=== PATIENT | male | born 1960 | race Caucasian/White ===

== ENCOUNTER 2015-12-30 08:13 | Outpatient (RCR) | payer MEDICAID, OTHER ==
[~2015-12-30 08:13] MED LIST: HYDR-3702 PO; IBP200T PO; PRD20T; PRED20TA PO
[2015-12-30 08:55] LABS: MEAN CORPUSCULAR HEMOGLOBIN 30.5 PG (26.0-34.0); MEAN CORPUSCULAR HGB CONC 35.3 g/dL (31.0-37.0); MEAN CORPUSCULAR VOLUME 86 FL (80-100); MEAN PLATELET VOLUME 8.9 FL (6.0-9.5); PLATELET COUNT 240 10^3uL (150-450); WHITE BLOOD COUNT 8.04 10^3uL (4.0-11.0)
[2015-12-30 09:15] LABS: ALBUMIN 3.2 g/dL (3.4-5.0); ANION GAP 11.9 MEQ/L (3-15); CALCULATED IONIZED CALCIUM 4.2 mg/dL (3.8-4.6); MAGNESIUM* 2.1 mg/dL (1.6-2.3); PHOSPHORUS 3.5 mg/dL (2.4-4.9); TOTAL PROTEIN 6.5 g/dL (6.4-8.5)
[2015-12-30 09:55] LABS: BAND NEUTROPHILS % 0 % (0-6); EOSINOPHILS % 3 % (0-4); LYMPHOCYTES # 1.5 #; MONOCYTES # 0.7 #; MONOCYTES % 9 % (3-11); RBC MORPH NORMAL (NORMAL); SEGMENTED NEUTROPHILS % 69 % (51-67); TOTAL CELLS COUNTED 100
[2016-01-13] MEDS ORDERED: HYDR-3811 PO (09:06)
[2016-01-20 09:24] LABS: MEAN CORPUSCULAR HEMOGLOBIN 30.1 PG (26.0-34.0); MEAN CORPUSCULAR VOLUME 84 FL (80-100); MEAN PLATELET VOLUME 9.5 FL (6.0-9.5); PLATELET COUNT 131 10^3uL (150-450); WHITE BLOOD COUNT 18.35 10^3uL (4.0-11.0)
[2016-01-20 09:30] LABS: MEAN CORPUSCULAR HGB CONC 35.6 g/dL (31.0-37.0)
[2016-01-20 09:44] LABS: ALBUMIN 2.9 g/dL (3.4-5.0); ANION GAP 12.3 MEQ/L (3-15); MAGNESIUM* 1.9 mg/dL (1.6-2.3); TOTAL PROTEIN 6.4 g/dL (6.4-8.5)
[2016-01-20 09:48] LABS: SEGMENTED NEUTROPHILS % 95 % (51-67)
[2016-01-20 09:49] LABS: BAND NEUTROPHILS % 3 % (0-6); EOSINOPHILS % 0 % (0-4); LYMPHOCYTES # 0.4 #; MONOCYTES % 0 % (3-11); RBC MORPH NORMAL (NORMAL); TOTAL CELLS COUNTED 100
[2016-01-22] MEDS ORDERED: OXYC1TAB87 PO (15:32)
[2016-01-27] MEDS ORDERED: MAGN400O7 PO (09:55)
[2016-01-27] MEDS ORDERED: POLY17PO2 PO (09:55)
[2016-01-27] MEDS ORDERED: DOCU100C8 PO (09:55)
[2016-01-27] MEDS ORDERED: VANC1.252 IV (09:55)
[2016-01-29] MEDS ORDERED: VANC1PLA9 IV (08:45)
[2016-01-29] MEDS ORDERED: ACET-93 PO (08:45)
[2016-02-04 08:56] LABS: MEAN CORPUSCULAR HEMOGLOBIN 29.9 PG (26.0-34.0); MEAN CORPUSCULAR HGB CONC 34.6 g/dL (31.0-37.0); MEAN CORPUSCULAR VOLUME 86 FL (80-100); MEAN PLATELET VOLUME 8.1 FL (6.0-9.5); PLATELET COUNT 428 10^3uL (150-450); WHITE BLOOD COUNT 9.57 10^3uL (4.0-11.0)
[2016-02-04 09:20] LABS: BAND NEUTROPHILS % 0 % (0-6); EOSINOPHILS % 0 % (0-4); LYMPHOCYTES # 0.5 #; MONOCYTES # 1.5 #; MONOCYTES % 17 % (3-11); SEGMENTED NEUTROPHILS % 78 % (51-67); TOTAL CELLS COUNTED 100
[2016-02-04 09:21] LABS: RBC MORPH NORMAL (NORMAL)
[2016-02-19 08:10] LABS: MEAN CORPUSCULAR HEMOGLOBIN 29.2 PG (26.0-34.0); MEAN CORPUSCULAR HGB CONC 33.8 g/dL (31.0-37.0); MEAN CORPUSCULAR VOLUME 86 FL (80-100); MEAN PLATELET VOLUME 8.1 FL (6.0-9.5); PLATELET COUNT 135 10^3uL (150-450); WHITE BLOOD COUNT 9.26 10^3uL (4.0-11.0)
[2016-02-19 08:37] LABS: BAND NEUTROPHILS % 0 % (0-6); EOSINOPHILS % 0 % (0-4); LYMPHOCYTES # 1.2 #; MONOCYTES % 0 % (3-11); RBC MORPH NORMAL (NORMAL); SEGMENTED NEUTROPHILS % 87 % (51-67); TOTAL CELLS COUNTED 100
[2016-02-19 18:04] LABS: IRON 16 ug/dL (65-175); UNBOUND IRON CONTENT 167 ug/dl (126-382)
[2016-02-27 07:44] LABS: MEAN CORPUSCULAR HEMOGLOBIN 28.6 PG (26.0-34.0); MEAN CORPUSCULAR HGB CONC 33.3 g/dL (31.0-37.0); MEAN CORPUSCULAR VOLUME 86 FL (80-100); MEAN PLATELET VOLUME 8.1 FL (6.0-9.5); PLATELET COUNT 287 10^3uL (150-450); WHITE BLOOD COUNT 4.77 10^3uL (4.0-11.0)
[2016-02-27 08:18] LABS: BAND NEUTROPHILS % 0 % (0-6); EOSINOPHILS % 0 % (0-4); LYMPHOCYTES # 0.2 #; MONOCYTES % 1 % (3-11); RBC MORPH NORMAL (NORMAL); SEGMENTED NEUTROPHILS % 94 % (51-67); TOTAL CELLS COUNTED 100
[2016-03-04 09:24] LABS: MEAN CORPUSCULAR HEMOGLOBIN 28.7 PG (26.0-34.0); MEAN CORPUSCULAR HGB CONC 33.5 g/dL (31.0-37.0); MEAN CORPUSCULAR VOLUME 86 FL (80-100); PLATELET COUNT 96 10^3uL (150-450); WHITE BLOOD COUNT 4.02 10^3uL (4.0-11.0)
[2016-03-04 09:55] LABS: BAND NEUTROPHILS % 12 % (0-6); SEGMENTED NEUTROPHILS % 70 % (51-67)
[2016-03-04 09:56] LABS: EOSINOPHILS % 0 % (0-4); LYMPHOCYTES # 0.6 #; MONOCYTES # 0.1 #; MONOCYTES % 3 % (3-11); RBC MORPH NORMAL (NORMAL); TOTAL CELLS COUNTED 100
[2016-03-04 17:37] LABS: IRON 177 ug/dL (65-175); UNBOUND IRON CONTENT <47 ug/dl (126-382)
[2016-03-11 08:08] LABS: MEAN CORPUSCULAR HEMOGLOBIN 28.8 PG (26.0-34.0); MEAN CORPUSCULAR HGB CONC 33.9 g/dL (31.0-37.0); MEAN CORPUSCULAR VOLUME 85 FL (80-100); MEAN PLATELET VOLUME 9.4 FL (6.0-9.5); PLATELET COUNT 94 10^3uL (150-450); WHITE BLOOD COUNT 10.17 10^3uL (4.0-11.0)
[2016-03-11 08:18] LABS: ALBUMIN 3.5 g/dL (3.4-5.0); ANION GAP 17.3 MEQ/L (3-15); CALCULATED IONIZED CALCIUM 4.3 mg/dL (3.8-4.6); MAGNESIUM* 1.5 mg/dL (1.6-2.3); PHOSPHORUS 3.8 mg/dL (2.4-4.9); TOTAL PROTEIN 6.3 g/dL (6.4-8.5)
[2016-03-11 08:43] LABS: ANISOCYTOSIS SLIGHT; BAND NEUTROPHILS % 2 % (0-6); EOSINOPHILS % 2 % (0-4); LYMPHOCYTES # 1.4 #; MONOCYTES # 0.5 #; MONOCYTES % 5 % (3-11); RBC MORPH SEE REFERENCE (NORMAL); SEGMENTED NEUTROPHILS % 77 % (51-67); STOMATOCYTES MODERATE; TOTAL CELLS COUNTED 100
[2016-03-24 13:48] LABS: MEAN CORPUSCULAR HEMOGLOBIN 29.6 PG (26.0-34.0); MEAN CORPUSCULAR HGB CONC 33.3 g/dL (31.0-37.0); MEAN CORPUSCULAR VOLUME 89 FL (80-100); MEAN PLATELET VOLUME 8.6 FL (6.0-9.5); PLATELET COUNT 92 10^3uL (150-450); WHITE BLOOD COUNT 20.24 10^3uL (4.0-11.0)
[2016-03-24 13:51] LABS: MAGNESIUM* 1.7 mg/dL (1.6-2.3); PHOSPHORUS 4.2 mg/dL (2.4-4.9)
[2016-03-24 14:07] LABS: BAND NEUTROPHILS % 6 % (0-6); EOSINOPHILS % 0 % (0-4); LYMPHOCYTES # 0.4 #; MONOCYTES # 0.6 #; MONOCYTES % 3 % (3-11); SEGMENTED NEUTROPHILS % 89 % (51-67); TOTAL CELLS COUNTED 100
[2016-03-24 14:08] LABS: ANISOCYTOSIS SLIGHT; MICROCYTOSIS SLIGHT; RBC MORPH SEE REFERENCE (NORMAL)
[2016-03-24 15:34] LABS: ALBUMIN 3.1 g/dL (3.4-5.0); ANION GAP 16.1 MEQ/L (3-15); CALCULATED IONIZED CALCIUM 4.4 mg/dL (3.8-4.6)
== END 2016-03-29 | disposition home or self-care (01) ==
LOC: EDSTATUS 08:13 → LAB 08:13
PROVIDERS: ATTEND Internal Medicine Hematology & Oncology
DX: C34.01 Malignant neoplasm of right main bronchus (principal); R53.83 Other fatigue; B95.62 Methicillin resistant Staphylococcus aureus infection as the cause of diseases classified elsewhere; J43.9 Emphysema, unspecified
CPT/HCPCS: 36415; 80048; 80053; 82565; 82570; 82728; 83540; 83550; 83615; 83735; 84100; 84156; 84520; 85007; 85025; 85027

== ENCOUNTER 2016-02-02 19:55 | Outpatient (RCR) | payer MEDICAID, OTHER ==
[~2016-02-02] VITALS: Ht 190.5 cm; Wt 84799.9 kg
[2016-02-02] MEDS: VANCOMYCIN 1000 MG VIAL ONE ×2 (20:08→20:23)
[2016-02-02] MEDS: SODIUM CHLORIDE 250 ML ONE ×2 (20:10→20:23)
[2016-02-02] MEDS ORDERED: SODIUM CHLORIDE FLUSH 20 ML ONE (20:11)
[2016-02-02] MEDS: VANCOMYCIN 1,000 MG in SODIUM CHLORIDE 250 ML IV SCH (20:23)
[2016-02-02] MEDS: SODIUM CHLORIDE FLUSH 10 ML SYR IV PRN (20:23)
--- NOTE | 2016-02-02 21:22 | NUR ---
PT HAD MULTIPLE WARM BLANKETS ON REMOVED ALL BUT ONE WILL RECHECK TEMP IN 30 MIN
--- NOTE | 2016-02-02 22:13 | NUR ---
TEMP TAKEN PRIOR TO DISCHARGE, 99.4 ORAL, PT WILL TAKE TYLENOL DIRECTED AND CONTINUE TO MONITOR TEMP AT HOME.
--- NOTE | 2016-02-03 08:30 | NUR ---
Pt arrives ambulated to room 341 for vanco infusion. Pt has a port inserted and it is patent. Port flushed with NS and vanco infusion started per pump at 165cc/hr. Pt has a cough this morning but states he has had that cough since Nov.
[2016-02-03] MEDS: VANCOMYCIN 1,000 MG in SODIUM CHLORIDE 250 ML IV SCH ×2 (08:38→20:09)
[2016-02-03] MEDS: SODIUM CHLORIDE FLUSH 10 ML SYR IV PRN ×4 (08:39→21:28)
--- NOTE | 2016-02-03 10:15 | NUR ---
Vanco infusion completed and port flushed with 10 cc/ns and 3ml of heparin. Temp 99. Pt left unit ambulatory with and will return this evening for his other dose of vanco. Pt to have vanco trough in the AM prior to the infusion.
[2016-02-03] MEDS ORDERED: SODIUM CHLORIDE FLUSH 10 ML ONE (20:02)
[2016-02-03] MEDS ORDERED: SODIUM CHLORIDE 250 ML ONE (20:02)
[2016-02-03] MEDS ORDERED: VANCOMYCIN 1000 MG VIAL ONE (20:02)
--- NOTE | 2016-02-03 20:15 | NUR ---
Pt presents for outpatient antibiotic infusion. Pt taken to room 305. Vancomycin infusion started to PAC after flushing with 10 ml Saline. Pt denies discomfort. Discussed treatment and expected length of time. Pt stated his understanding. Vital signs obtained. Pt denies other needs. Call light in reach.
[2016-02-03 20:27] VITALS: BP 121/80
[2016-02-03 20:30] VITALS: BP 121/80
--- NOTE | 2016-02-03 21:43 | NUR ---
Pt's antibiotic infusion complete. PAC flushed with 10 ml Saline then Heparin locked with 30 units/3ml. Pt left ambulatory. Denied other needs or concerns. Informed pt of temperature. Pt stated he would take Tylenol at home. Pt left ambulatory. Instructed pt to return in AM for next infusion and labs before infusion starts.
[2016-02-03 21:49] VITALS: BP 118/66
--- NOTE | 2016-02-04 08:30 | NUR ---
Pt presents for outpatient antibiotic infusion. Pt taken to room 341. Vancomycin infusion started to CL after flushing with 10 ml Saline. Pt denies discomfort. Discussed treatment and expected length of time. Pt stated his understanding. Vital signs obtained. Pt denies other needs. Call light in reach.
[2016-02-04] MEDS: VANCOMYCIN 1,000 MG in SODIUM CHLORIDE 250 ML IV SCH ×2 (08:35→20:10)
[2016-02-04] MEDS: SODIUM CHLORIDE FLUSH 10 ML SYR IV PRN ×4 (08:35→22:08)
[2016-02-04 08:37] VITALS: BP 91/63
[2016-02-04 08:39] VITALS: BP 91/63
--- NOTE | 2016-02-04 10:10 | NUR ---
Pt's antibiotic infusion complete. CL flushed with 10 ml Saline then Heparin locked with 30 units/3ml. Pt left ambulatory. Denied other needs or concerns.
[2016-02-04 10:48] LABS: ALBUMIN 2.1 g/dL (3.4-5.0); ANION GAP 8.4 MEQ/L (3-15); CALCULATED IONIZED CALCIUM 4.2 mg/dL (3.8-4.6); TOTAL PROTEIN 5.7 g/dL (6.4-8.5)
--- NOTE | 2016-02-05 07:55 | NUR ---
Pt. arrives to [facility] for outpatient Vanco transfusion. R chest port is already accessed upon arrival.
[2016-02-05 07:58] VITALS: BP 94/60
[2016-02-05 08:00] VITALS: BP 94/60
[2016-02-05] MEDS: SODIUM CHLORIDE FLUSH 10 ML SYR IV PRN ×3 (08:08→20:15)
[2016-02-05] MEDS: VANCOMYCIN 1,000 MG in SODIUM CHLORIDE 250 ML IV SCH ×2 (08:09→20:15)
[2016-02-05 09:46] VITALS: BP 96/62
--- NOTE | 2016-02-05 09:50 | NUR ---
Vanco infusion complete. VSS. Pt. dismissed to home, ambulatory, accompanied off unit by spouse and staff at this time.
[2016-02-05 20:49] VITALS: BP 96/62
[2016-02-05 20:53] VITALS: BP 96/62
[2016-02-05 22:03] VITALS: BP 108/64
[2016-02-06] MEDS: SODIUM CHLORIDE FLUSH 10 ML SYR IV PRN ×2 (08:13→20:49)
[2016-02-06 08:14] VITALS: BP 96/60
[2016-02-06] MEDS: VANCOMYCIN 1,000 MG in SODIUM CHLORIDE 250 ML IV SCH ×2 (08:14→20:48)
[2016-02-06 08:17] VITALS: BP 96/60
--- NOTE | 2016-02-06 09:52 | NUR ---
0814- Abx infusion begins. VSS. Church has no complaints. 0947- Abx infusion ends. Patient escorted to chemotherapy
[2016-02-07] MEDS: VANCOMYCIN 1,000 MG in SODIUM CHLORIDE 250 ML IV SCH ×2 (08:21→21:00)
[2016-02-07] MEDS: SODIUM CHLORIDE FLUSH 10 ML SYR IV PRN ×3 (08:22→22:38)
[2016-02-07] MEDS ORDERED: SODIUM CHLORIDE 100 ML ONE (20:18)
[2016-02-07 20:53] VITALS: BP 113/74
--- NOTE | 2016-02-07 21:23 | NUR ---
Patient arrives ambulatory to ICU with spouse, settled into room 341. Port a cath Accessed with occlusive dressing, flushed with 10ml NS, IV Vancomycin infusion began 2100, VS as charted. Denies any complaints or needs at this time.
[2016-02-07 22:37] VITALS: BP 121/77
--- NOTE | 2016-02-07 22:54 | NUR ---
2230 IV Vanco complete, Port flushed and Hep locked. Per patient request and protocol, de-accessed port a cath, site intact no bleeding, covered with 2 x 2. VS taken and recorded, denies any needs or complaints at this time, patient and spouse departed ICU 2234.
[2016-02-07 23:00] VITALS: BP 121/77
[2016-02-07 23:01] VITALS: BP 121/77
[2016-02-08] MEDS: VANCOMYCIN 1,000 MG in SODIUM CHLORIDE 250 ML IV SCH ×2 (08:28→20:15)
[2016-02-08] MEDS: SODIUM CHLORIDE FLUSH 10 ML SYR IV PRN ×2 (08:29→20:15)
[2016-02-09] MEDS: VANCOMYCIN 1,000 MG in SODIUM CHLORIDE 250 ML IV SCH ×2 (08:05→20:24)
[2016-02-09] MEDS: SODIUM CHLORIDE FLUSH 10 ML SYR IV PRN ×2 (08:05→20:24)
--- NOTE | 2016-02-10 07:57 | NUR ---
Pt. arrives to unit, ambulatory, accompanied by spouse, for Vanco infusion.
[2016-02-10 08:02] VITALS: BP 101/64
[2016-02-10] MEDS: VANCOMYCIN 1,000 MG in SODIUM CHLORIDE 250 ML IV SCH ×2 (08:06→20:04)
[2016-02-10] MEDS: SODIUM CHLORIDE FLUSH 10 ML SYR IV PRN ×4 (08:06→21:53)
--- NOTE | 2016-02-10 08:10 | NUR ---
Vanco infusion started at this time to R PAC. No blood return obtained, pt. states this happens sometimes, but he is able to taste the NS flush like he normally does. Flushes without difficulty.
[2016-02-10 09:40] VITALS: BP 103/69
--- NOTE | 2016-02-10 09:48 | NUR ---
infusion complete and the patient is escorted out of the building at this time
[2016-02-11] MEDS: VANCOMYCIN 1,000 MG in SODIUM CHLORIDE 250 ML IV SCH ×2 (09:01→20:15)
[2016-02-11] MEDS: SODIUM CHLORIDE FLUSH 10 ML SYR IV PRN ×4 (09:01→21:46)
[2016-02-11 09:09] VITALS: BP 95/69
--- NOTE | 2016-02-11 10:39 | NUR ---
Vancomycin infusion complete. Pt. tolerated well. Port flushed per protocol and capped with alcohol embedded port cover provided by pt. Pt. dismissed at this time, ambulatory.
--- NOTE | 2016-02-12 07:55 | NUR ---
Pt. received to 341 for Vanco infusion.
[2016-02-12 07:56] VITALS: BP 102/66
[2016-02-12] MEDS: SODIUM CHLORIDE FLUSH 10 ML SYR IV PRN ×4 (08:02→21:35)
[2016-02-12] MEDS: VANCOMYCIN 1,000 MG in SODIUM CHLORIDE 250 ML IV SCH ×2 (08:02→19:58)
--- NOTE | 2016-02-12 09:35 | NUR ---
Vanco infusion complete. Pt. tolerated well. Pt. dismissed to home, ambulatory.
[2016-02-13 07:50] VITALS: BP 110/71
--- NOTE | 2016-02-13 07:50 | NUR ---
To room 341 for Vancomycin 1 gram IV @ 165 mL/hr per janice cath R upper chest
[2016-02-13] MEDS: VANCOMYCIN 1,000 MG in SODIUM CHLORIDE 250 ML IV SCH ×2 (07:59→20:14)
[2016-02-13] MEDS: SODIUM CHLORIDE FLUSH 10 ML SYR IV PRN ×3 (07:59→20:14)
--- NOTE | 2016-02-13 08:05 | NUR ---
IV infusion started after flushing janice cath c 10 mL - with blood return - repots "I feel better" "I guess it is working" "getting chemotherapy too"
[2016-02-13 09:30] VITALS: BP 99/69
--- NOTE | 2016-02-13 09:35 | NUR ---
Vancomycin 1 gram infused per IV pump -- janice cath access line flushed with 10 mL NS - followed by 30 units Heparin - line clamped
[2016-02-14 07:50] VITALS: BP 103/64
--- NOTE | 2016-02-14 07:50 | NUR ---
To room 341 ambulatory for OP infusion
[2016-02-14] MEDS: SODIUM CHLORIDE FLUSH 10 ML SYR IV PRN ×4 (07:57→21:38)
[2016-02-14] MEDS: VANCOMYCIN 1,000 MG in SODIUM CHLORIDE 250 ML IV SCH ×2 (07:57→20:07)
--- NOTE | 2016-02-14 08:00 | NUR ---
Vancomycin 1 gram IV per pump @ 165 mL/hr - janice cath R upper chest access flushed c 10 mL NS prior to start - blood return with aspiration
[2016-02-14 09:30] VITALS: BP 93/63
--- NOTE | 2016-02-14 09:35 | NUR ---
Vancomycin 1 gm infused - janice cath R upper chest flushed c 10 mL NS followed by 30 units Heparing - access line clamped and alcohol cap replaced
--- NOTE | 2016-02-14 20:30 | NUR ---
WARM BLANKET GIVEN TO PATIENT.
--- NOTE | 2016-02-14 21:39 | NUR ---
REMOVED PETER NEEDLE FROM PORT. COVERED SITE WITH A BANDAID.
--- NOTE | 2016-02-15 08:00 | NUR ---
patient arrives to room 341 for outpatient therapy. Port accessed using sterile technique, VSS and infusion begins at approximately 0825.
[2016-02-15] MEDS: VANCOMYCIN 1,000 MG in SODIUM CHLORIDE 250 ML IV SCH ×2 (08:20→19:57)
[2016-02-15] MEDS: SODIUM CHLORIDE FLUSH 10 ML SYR IV PRN ×3 (08:22→21:26)
[2016-02-15 08:25] VITALS: BP 102/66
[2016-02-15 08:26] VITALS: BP 102/66
--- NOTE | 2016-02-15 09:56 | NUR ---
IV abx infusion is complete. CL hep locked and the patient is dismissed ambulatory.
[2016-02-15 19:50] VITALS: BP 95/66
--- NOTE | 2016-02-15 20:01 | NUR ---
Ranjit arrives ambulatory to room 341 1850 for outpatient infusion of Vancomycin. VS completed and charted, Port a cath flushed with good blood return, IV antibiotic begun. Resting comfortably in recliner, with TV on and reading paper. Addendum: 02/15/16 at 2008 by Trinh Beltran RN Patient arrived to floor 1950. Infusion begun at 1956
--- NOTE | 2016-02-15 21:31 | NUR ---
Infusion completed, port, flushed and hep locked, alcohol impregnated cap applied. VS as charted, patient left ambulatory at this time.
[2016-02-15 21:33] VITALS: BP 105/66
--- NOTE | 2016-02-16 07:45 | NUR ---
Pt. arrives to 341, ambulatory, for vancomycin infusion.
[2016-02-16 07:47] VITALS: BP 112/78
[2016-02-16 07:51] VITALS: BP 112/78
[2016-02-16] MEDS: SODIUM CHLORIDE FLUSH 10 ML SYR IV PRN ×3 (07:58→21:45)
[2016-02-16] MEDS: VANCOMYCIN 1,000 MG in SODIUM CHLORIDE 250 ML IV SCH ×2 (07:59→20:11)
--- NOTE | 2016-02-16 09:35 | NUR ---
Vanco infusion complete. Pt. dismissed to home ambulatory.
--- NOTE | 2016-02-17 07:45 | NUR ---
Pt arrived ambulatory to unit for vancomycin infusion. Pt placed in room 341. Vanco infusion started per pump at 165cc/hr per orders.
[2016-02-17] MEDS: VANCOMYCIN 1,000 MG in SODIUM CHLORIDE 250 ML IV SCH ×2 (07:50→19:50)
[2016-02-17 07:57] VITALS: BP 110/72
[2016-02-17 08:01] VITALS: BP 110/72
[2016-02-17] MEDS: SODIUM CHLORIDE FLUSH 10 ML SYR IV PRN ×3 (09:25→21:23)
--- NOTE | 2016-02-17 09:35 | NUR ---
Pt left unit ambulatory to home after vanco infusion. Denies any reactions.
--- NOTE | 2016-02-18 08:00 | NUR ---
Pt arrives ambulatory to unit and taken to room 341 for infusion of vancomycin. Port flushed with 10cc/nc and infusion started per pump at 165cc/hr.
[2016-02-18] MEDS: VANCOMYCIN 1,000 MG in SODIUM CHLORIDE 250 ML IV SCH (08:03)
[2016-02-18] MEDS: SODIUM CHLORIDE FLUSH 10 ML SYR IV PRN ×2 (08:04→09:35)
[2016-02-18 08:06] VITALS: BP 100/70
[2016-02-18 08:08] VITALS: BP 100/70
--- NOTE | 2016-02-18 09:40 | NUR ---
Infusion of vanco completed and central line flushed wit 10cc/nc and 30 units of heparin. Pt dismissed to home ambulatory with . Pt states he may not be back tonight due to being placed on oral meds. Will have physician call with orders.
== END 2016-05-02 | disposition home or self-care (01) ==
LOC: ICU 02-03 07:56 → EUOP 02-03 07:56 → ICU 02-03 13:26 → EUOP 02-03 19:55 → MED/SURG 02-03 19:56 → ICU 02-04 07:58 → EUOP 02-04 07:58 → MED/SURG 02-04 19:49 → EUOP 02-05 07:50 → ICU 02-05 07:51 → EUOP 02-05 19:43 → OB 02-05 19:50 → EUOP 02-05 19:50 → ICU 02-06 07:54 → EUOP 02-06 07:54 → ICU 02-07 20:12 → EUOP 02-07 22:35 → ICU 02-10 07:52 → EUOP 02-10 19:50 → ICU 02-11 08:41 → EUOP 02-11 08:41 → ICU 02-12 07:46 → EUOP 02-12 19:41 → ICU 02-13 07:43 → EUOP 02-13 07:43 → ICU 02-14 07:45 → EUOP 02-14 09:40 → ICU 02-15 07:53 → EUOP 02-15 09:55 → ICU 02-15 19:40 → EUOP 02-15 19:40 → ICU 02-16 07:40 → EUOP 02-16 09:35 → ICU 02-17 07:40 → EUOP 02-17 07:40 → ICU 02-18 07:44
PROVIDERS: ATTEND Family Medicine
DX: J86.9 Pyothorax without fistula (principal); B95.61 Methicillin susceptible Staphylococcus aureus infection as the cause of diseases classified elsewhere
CPT/HCPCS: 36415; 80053; 80202; 85652; 86140; 96365; 96366; J1642; J3370; J7050; 36000

== ENCOUNTER 2016-02-02 19:55 | Outpatient (RCR) | payer MEDICAID, OTHER ==
[~2016-02-02 19:55] MED LIST changes: +ACET-93 PO; +DOCU100C8 PO; +HYDR-3811 PO; +MAGN400O7 PO; +OXYC1TAB87 PO; +POLY17PO2 PO; +VANC1.252 IV; +VANC1PLA9 IV
[2016-05-12] MEDS ORDERED: RIVA20TA PO (06:05)
[2016-05-12] MEDS ORDERED: ZOLP10TA PO (06:05)
[2016-06-01] MEDS ORDERED: ALBUTEROL/IPRATROPIUM 3MG-0.5MG/3ML (DUONEB) NEB VIAL INH ONE (09:26)
[2016-06-01] MEDS ORDERED: GUAI1TBM7 PO (11:10)
[2016-06-01] MEDS ORDERED: GUAI118L16 PO (11:10)
[2016-06-01] MEDS ORDERED: LINE600T PO (11:18)
[2016-06-26] MEDS ORDERED: ATOR80TA PO (08:27)
[2016-06-26] MEDS ORDERED: MAGN400T29 PO (08:27)
[2016-06-26] MEDS ORDERED: IPRA3AMP11 INH (08:28)
[2016-06-26] MEDS ORDERED: ASPI-586 PO (08:28)
[2016-06-26] MEDS ORDERED: LINE600T6 PO (08:28)
[2016-07-06 09:41] LABS: BASOPHILS % (AUTO) 0 % (0-2); EOSINOPHILS # (AUTO) 0.2 10^3uL; EOSINOPHILS % (AUTO) 3 % (0-4); LYMPHOCYTES # (AUTO) 0.6 X10^3; MEAN CORPUSCULAR HEMOGLOBIN 31.1 PG (26.0-34.0); MEAN CORPUSCULAR HGB CONC 31.9 g/dL (31.0-37.0); MEAN CORPUSCULAR VOLUME 97 FL (80-100); MEAN PLATELET VOLUME 9.3 FL (6.0-9.5); MONOCYTES # (AUTO) 0.7 X10^3; MONOCYTES % (AUTO) 10 % (3-11); NEUTROPHILS # (AUTO) 5.1 X10^3; NEUTROPHILS % (AUTO) 78 % (51-67); PLATELET COUNT 76 10^3uL (150-450); WHITE BLOOD COUNT 6.58 10^3uL (4.0-11.0)
== END 2016-08-19 19:25 | disposition home or self-care (01) ==
LOC: LAB 07-06 09:25
PROVIDERS: ATTEND Internal Medicine Infectious Disease
DX: Z51.81 Encounter for therapeutic drug level monitoring (principal); Z79.2 Long term (current) use of antibiotics; C34.01 Malignant neoplasm of right main bronchus
CPT/HCPCS: 36415; 85025

== ENCOUNTER 2016-03-30 09:26 | Outpatient (RCR) | payer MEDICAID ==
[2016-04-01 09:21] LABS: MEAN CORPUSCULAR HEMOGLOBIN 30.3 PG (26.0-34.0); MEAN CORPUSCULAR HGB CONC 32.6 g/dL (31.0-37.0); MEAN CORPUSCULAR VOLUME 93 FL (80-100); MEAN PLATELET VOLUME 9.2 FL (6.0-9.5); PLATELET COUNT 123 10^3uL (150-450); WHITE BLOOD COUNT 18.42 10^3uL (4.0-11.0)
[2016-04-01 10:17] LABS: BAND NEUTROPHILS % 3 % (0-6); EOSINOPHILS % 0 % (0-4); LYMPHOCYTES # 1.8 #; MONOCYTES # 1.6 #; MONOCYTES % 9 % (3-11); SEGMENTED NEUTROPHILS % 78 % (51-67); TOTAL CELLS COUNTED 100
[2016-04-01 10:18] LABS: ANISOCYTOSIS SLIGHT; MICROCYTOSIS SLIGHT; RBC MORPH SEE REFERENCE (NORMAL)
[2016-04-09 09:33] LABS: MEAN CORPUSCULAR HEMOGLOBIN 29.9 PG (26.0-34.0); MEAN CORPUSCULAR HGB CONC 32.5 g/dL (31.0-37.0); MEAN CORPUSCULAR VOLUME 92 FL (80-100); MEAN PLATELET VOLUME 8.9 FL (6.0-9.5); PLATELET COUNT 141 10^3uL (150-450)
[2016-04-09 10:24] LABS: ANISOCYTOSIS MODERATE; BAND NEUTROPHILS % 0 % (0-6); EOSINOPHILS % 0 % (0-4); LYMPHOCYTES # 0.7 #; MONOCYTES # 1.3 #; MONOCYTES % 13 % (3-11); RBC MORPH SEE REFERENCE (NORMAL); SEGMENTED NEUTROPHILS % 80 % (51-67); TOTAL CELLS COUNTED 100
[2016-04-20 09:45] LABS: MEAN CORPUSCULAR HEMOGLOBIN 31.1 PG (26.0-34.0); MEAN CORPUSCULAR HGB CONC 33.2 g/dL (31.0-37.0); MEAN CORPUSCULAR VOLUME 94 FL (80-100); MEAN PLATELET VOLUME 8.5 FL (6.0-9.5); PLATELET COUNT 96 10^3uL (150-450); WHITE BLOOD COUNT 7.75 10^3uL (4.0-11.0)
[2016-04-20 10:19] LABS: ANISOCYTOSIS MARKED; BAND NEUTROPHILS % 0 % (0-6); EOSINOPHILS % 1 % (0-4); LYMPHOCYTES # 0.9 #; MONOCYTES # 0.4 #; MONOCYTES % 5 % (3-11); RBC MORPH SEE REFERENCE (NORMAL); SEGMENTED NEUTROPHILS % 83 % (51-67); TOTAL CELLS COUNTED 100
[2016-04-20 10:22] LABS: ALBUMIN 3.7 g/dL (3.4-5.0); CALCULATED IONIZED CALCIUM 4.1 mg/dL (3.8-4.6); MAGNESIUM* 1.7 mg/dL (1.6-2.3); TOTAL PROTEIN 7.5 g/dL (6.4-8.5)
[2016-05-12] MEDS ORDERED: ZOLP10TA PO (06:05)
[2016-05-12] MEDS ORDERED: RIVA20TA PO (06:05)
[2016-05-18 08:54] LABS: MEAN PLATELET VOLUME 8.3 FL (6.0-9.5); PLATELET COUNT 234 10^3uL (150-450); WHITE BLOOD COUNT 4.45 10^3uL (4.0-11.0)
[2016-05-18 08:56] LABS: MEAN CORPUSCULAR VOLUME 100 FL (80-100)
[2016-05-18 09:09] LABS: ANISOCYTOSIS SLIGHT; BAND NEUTROPHILS % 0 % (0-6); EOSINOPHILS % 4 % (0-4); LYMPHOCYTES # 0.6 #; MONOCYTES # 0.4 #; MONOCYTES % 10 % (3-11); RBC MORPH SEE REFERENCE (NORMAL); SEGMENTED NEUTROPHILS % 72 % (51-67); TOTAL CELLS COUNTED 100
[2016-05-18 09:47] LABS: ALBUMIN 3.4 g/dL (3.4-5.0); CALCULATED IONIZED CALCIUM 4.3 mg/dL (3.8-4.6); MAGNESIUM* 1.6 mg/dL (1.6-2.3); TOTAL PROTEIN 6.7 g/dL (6.4-8.5)
[2016-06-01] MEDS ORDERED: GUAI1TBM7 PO (11:10)
[2016-06-01] MEDS ORDERED: GUAI118L16 PO (11:10)
[2016-06-01] MEDS ORDERED: LINE600T PO (11:18)
[2016-06-26] MEDS ORDERED: MAGN400T29 PO (08:27)
[2016-06-26] MEDS ORDERED: ATOR80TA PO (08:27)
[2016-06-26] MEDS ORDERED: IPRA3AMP11 INH (08:28)
[2016-06-26] MEDS ORDERED: LINE600T6 PO (08:28)
[2016-06-26] MEDS ORDERED: ASPI-586 PO (08:28)
== END 2016-06-28 | disposition home or self-care (01) ==
LOC: LAB 09:26
PROVIDERS: ATTEND Internal Medicine Hematology & Oncology
DX: C34.01 Malignant neoplasm of right main bronchus (principal)
CPT/HCPCS: 36415; 80053; 82570; 83615; 83735; 84100; 84156; 85007; 85025; 85027

== ENCOUNTER 2016-04-03 10:18 | Outpatient (RCR) | payer MEDICAID ==
[2016-04-03] VITALS (15 sets, daily range): BP systolic 116–141; BP diastolic 74–90
[~2016-04-03 10:18] MED LIST changes: +ACETAMINOPHEN 325 MG TAB (TYLENOL) PO SCH; -GUAI118L16 PO; -GUAI1TBM7 PO; -LINE600T PO; +NS 250 ML (IVPB) BAG IV SCH; -RIVA20TA PO; +SODIUM CHLORIDE FLUSH 3 ML SYR IV PRN; -ZOLP10TA PO; +diphenhydrAMINE 25 MG (BENADRYL) TABLET PO SCH
--- NOTE | 2016-04-03 10:40 | NUR ---
Pt arrives ambulatory to ICU unit and taken to room 341 for transfusion of two units of blood. Pt oriented to room.
--- NOTE | 2016-04-03 10:45 | NUR ---
Port accessed to Ngo needle using sterile technique, blood return noted and flushed with 10cc NS. Pt tolerated procedure well.
--- NOTE | 2016-04-03 10:50 | NUR ---
1st unit of PRBCs unit number [id number] started infusing per pump.
[2016-04-03] MEDS: SODIUM CHLORIDE FLUSH 10 ML SYR IV PRN ×2 (11:06→15:15)
--- NOTE | 2016-04-03 12:55 | NUR ---
1st unit of PRBCs completed.
--- NOTE | 2016-04-03 13:00 | NUR ---
2nd unit of PRBC started, unit # [id number] infusing per pump.
--- NOTE | 2016-04-03 15:00 | NUR ---
2nd unit of PRBC finished.
--- NOTE | 2016-04-03 15:15 | NUR ---
Port deaccessed after being flushed with NS and Heparin. Pt left ambulatory for home at 1520. Pt in stable condition, VS WNL.
== END 2016-04-03 15:20 | disposition home or self-care (01) ==
LOC: ICU 10:18 → EUOP 10:18
PROVIDERS: ATTEND Internal Medicine Hematology & Oncology
DX: D64.9 Anemia, unspecified (principal)
CPT/HCPCS: 36415; 36430; 85014; 85018; 86850; 86900; 86901; 86920; A9270; J7050; P9040

== ENCOUNTER → 2016-04-03 | Outpatient (CLI) | payer MEDICAID ==
[~2016-04-03] MED LIST changes: +GUAI118L16 PO; +GUAI1TBM7 PO; +LINE600T PO; +RIVA20TA PO; +ZOLP10TA PO
--- NOTE | 2016-04-03 10:38 | Diagnostic Imaging Report ---
PROCEDURE: CT chest pelvis with and abdomen with and without contrast. TECHNIQUE: Multiple contiguous axial images were obtained through the chest, abdomen and pelvis after uneventful bolus administration of intravenous contrast. Precontrast acquisitions were acquired through the abdomen. INDICATION: Lung cancer. COMPARISON: 02/11/2016 FINDINGS: Right-sided Port-A-Cath is again identified. Previously identified precarinal lymph node appears minimally enlarged when compared to the prior examination. This currently measures 2.3 x 1.8 cm when it previously measured 2.1 x 1.7 cm. Additionally, a right paratracheal lymph node that did measure 0.8 x 0.7 cm now measures 1.4 x 1.3 cm, series 4, image 22. Calcified subcarinal lymph nodes are again identified. No aneurysmal dilatation of the thoracic aorta. No pericardial effusion. Right basilar chest tube is again identified. Peripherally enhancing fluid collection, which the right basilar chest tube is within, is again identified minimally improved from the prior examination. No pneumothorax. Background emphysematous changes are again noted within the lungs bilaterally. Reticular opacities within the right lung base are again identified, predominantly stable. However, these appear to have slightly increased within the right lower lobe. Internal filling defects are again identified within the right lower lobe bronchus and smaller branches within the right lower lobe. This demonstrates a slightly different configuration compared to prior examination and is less extensive. No significant left pleural effusion. Though the examination is not specifically tailored to evaluate for pulmonary emboli, there is likely a persistent filling defect within a left lower lobe segmental pulmonary artery. This is best seen on series 4, image 39 through 45. No new opacity or nodule within the left lung. No acute osseous abnormality within the chest. 9 mm hypodensity within the lateral aspect of the left hepatic lobe is stable from the prior examination. Tiny 3 mm hypodensity within the peripheral right hepatic lobe is stable from the prior examination, too small to completely characterize. No new hepatic lesion identified. Calcified splenic granuloma. Otherwise, the spleen is unremarkable. The right adrenal gland is unremarkable. Left adrenal gland mass measures 4.0 x 2.9 cm, not significantly changed from the prior examination. The gallbladder is unremarkable. The kidneys are stable with a tiny subcentimeter hypodensity within the left kidney. Otherwise, the kidneys are unremarkable. Moderate vascular calcifications within the abdominal aorta and its branch vessels without aneurysmal dilatation of the abdominal aorta. The urinary bladder is unremarkable. No bowel obstruction or pneumatosis. Small amount of free fluid within the pelvis. No significant adenopathy or free air within the abdomen or pelvis. Scattered osseous degenerative changes are present without acute osseous abnormality. IMPRESSION: 1. Though examination was not specifically tailored to evaluate the pulmonary arteries, there appears to be pulmonary embolus within segmental branches of the left lower lobe. No evidence of pulmonary infarction at this time. 2. Minimally improved peripherally enhancing gas and fluid collection within the right lung base with right-sided chest tube in place. Findings could relate to an infected pleural effusion or abscess. Recommend clinical correlation. 3. Slightly improved intraluminal filling defects within the right lower lobe bronchus extending into segmental branches in the right lower lobe. 4. Slightly increasing mediastinal adenopathy. Although this could simply be reactive, findings are concerning for progression of metastatic disease. 5. Stable left adrenal gland mass. 6. Background emphysematous changes. 7. Stable small hypodensities within the liver. 8. Small amount of free fluid within the lower pelvis, minimally increased from the prior examination. Findings discussed with Dr. Hernandez at 10:23 a.m. on 04/03/2016. Dictated by: Dictated on workstation # [id number]
== END ==
LOC: RAD 08:55
PROVIDERS: ATTEND Internal Medicine Hematology & Oncology
DX: C34.01 Malignant neoplasm of right main bronchus (principal)
CPT/HCPCS: 71260; 74178; Q9967

== ENCOUNTER → 2016-04-10 | Outpatient (REF) | payer MEDICAID | LOC: LAB 17:03 | PROVIDERS: ATTEND Surgery | DX: J91.0 Malignant pleural effusion (principal) | CPT/HCPCS: 87070; 87075; 87147; 87186 ==

== ENCOUNTER → 2016-04-10 | Outpatient (CLI) | payer MEDICAID | LOC: RAD 16:18 | PROVIDERS: ATTEND Surgery | DX: J91.0 Malignant pleural effusion (principal) | CPT/HCPCS: 71020 ==

== ENCOUNTER → 2016-04-28 | Outpatient (CLI) | payer MEDICAID | LOC: RAD 10:35 | PROVIDERS: ATTEND Internal Medicine Hematology & Oncology | DX: R06.02 Shortness of breath (principal) | CPT/HCPCS: 71020 ==

== ENCOUNTER 2016-05-12 05:53 | Emergency (ER) | payer MEDICAID ==
[~2016-05-12] VITALS: Ht 190.5 cm; Wt 80.4 kg
[2016-05-12 06:38] LABS: BASOPHILS % (AUTO) 0 % (0-2); EOSINOPHILS # (AUTO) 0.2 10^3uL; EOSINOPHILS % (AUTO) 4 % (0-4); LYMPHOCYTES # (AUTO) 0.5 X10^3; MEAN CORPUSCULAR HGB CONC 33.6 g/dL (31.0-37.0); MEAN PLATELET VOLUME 7.9 FL (6.0-9.5); MONOCYTES # (AUTO) 0.5 X10^3; MONOCYTES % (AUTO) 14 % (3-11); NEUTROPHILS # (AUTO) 2.4 X10^3; NEUTROPHILS % (AUTO) 67 % (51-67); PLATELET COUNT 215 10^3uL (150-450); WHITE BLOOD COUNT 3.61 10^3uL (4.0-11.0)
--- NOTE | 2016-05-12 06:47 | NUR ---
Report given to Kierra for continued care of pt
[2016-05-12 06:50] LABS: ALBUMIN 3.3 g/dL (3.4-5.0); ANION GAP 11.2 MEQ/L (3-15); CALCULATED IONIZED CALCIUM 4.2 mg/dL (3.8-4.6); MEAN CORPUSCULAR HEMOGLOBIN 33.8 PG (26.0-34.0); MEAN CORPUSCULAR VOLUME 101 FL (80-100); TOTAL PROTEIN 6.7 g/dL (6.4-8.5)
[2016-05-12 07:27] VITALS: BP 117/86
== END 2016-05-12 07:28 | disposition home or self-care (01) ==
LOC: EDUNIT# 05:53 → ED 05:54
DX: K64.4 Residual hemorrhoidal skin tags (principal)
CPT/HCPCS: 36415; 80053; 85025; 85610; 85730; 99282

== ENCOUNTER 2016-06-01 07:01 | Inpatient (IN) | payer MEDICAID ==
[~2016-06-01] VITALS: Ht 190.5 cm; Wt 78.0 kg
--- NOTE | 2016-06-01 07:03 | NUR ---
Patient arrived via EMS to room 4. Patient was A&Ox3. Patient was accompanied by S/O. Patient was transfered to ER cart with assist x 4. Patient was 93% on room air.
[2016-06-01 07:15] LABS: MEAN CORPUSCULAR HGB CONC 33.2 g/dL (31.0-37.0); MEAN PLATELET VOLUME 9.1 FL (6.0-9.5); PLATELET COUNT 231 10^3uL (150-450); WHITE BLOOD COUNT 6.52 10^3uL (4.0-11.0)
[2016-06-01 07:19] LABS: MEAN CORPUSCULAR HEMOGLOBIN 32.7 PG (26.0-34.0); MEAN CORPUSCULAR VOLUME 98 FL (80-100)
[2016-06-01 07:24] LABS: BAND NEUTROPHILS % 0 % (0-6); EOSINOPHILS % 5 % (0-4); LYMPHOCYTES # 0.8 #; MONOCYTES % 17 % (3-11); RBC MORPH NORMAL (NORMAL); SEGMENTED NEUTROPHILS % 65 % (51-67); TOTAL CELLS COUNTED 100
[2016-06-01 07:26] LABS: ALBUMIN 3.6 g/dL (3.4-5.0); ANION GAP 11.3 MEQ/L (3-15); TOTAL PROTEIN 7.4 g/dL (6.4-8.5)
[2016-06-01] MEDS ORDERED: ALBUTEROL/IPRATROPIUM 3MG-0.5MG/3ML (DUONEB) NEB VIAL INH ONE (09:20)
--- NOTE | 2016-06-01 09:25 | NUR ---
Patient complains of vertigo, eyes closed. Vomited small amount. Dr. Asencio notified, order for Gray received.
[2016-06-01] MEDS ORDERED: ONDANSETRON 2 MG/ML (Z0FRAN) 2 ML VIAL IV ONE (09:30)
[2016-06-01] MEDS ORDERED: ONDANSETRON 2 MG/ML (Z0FRAN) 2 ML VIAL IV PRN (09:40)
[2016-06-01] MEDS ORDERED: ACETAMINOPHEN 325 MG TAB (TYLENOL) PO PRN (09:40)
[2016-06-01] MEDS ORDERED: CALCIUM CARBONATE CHEWABLE 300 MG (TUMS) TABLET PO PRN (09:40)
[2016-06-01] MEDS ORDERED: oxyCODONE/ACETAMINOPHEN 5MG-325 MG (PERCOCET) TABLET PO PRN (09:40)
[2016-06-01] MEDS ORDERED: VANCOMYCIN 1,000 MG in SODIUM CHLORIDE 250 ML IV ONE (09:40)
[2016-06-01] MEDS ORDERED: POLYETHYLENE GLYCOL 17 GM (MIRALAX) PACKET PO PRN (09:40)
[2016-06-01] MEDS ORDERED: ONDANSETRON 4 MG (ZOFRAN) ORAL DISSOLVE TAB PO PRN (09:40)
[2016-06-01] MEDS ORDERED: ZOLPIDEM 10 MG (AMBIEN) TAB PO PRN (09:40)
[2016-06-01] MEDS ORDERED: PROMETHAZINE HCL INJ 12.5 MG in SODIUM CHLORIDE 25 ML IV PRN (09:40)
[2016-06-01] MEDS ORDERED: DOCUSATE SODIUM 100 MG (COLACE) CAP PO PRN (09:40)
[2016-06-01] MEDS ORDERED: MAGNESIUM HYDROXIDE 80MG/ML (MILK OF MAGNESIA) 30 ML UDC PO PRN (09:40)
[2016-06-01] MEDS ORDERED: MAG HYDROX/AL HYDROX/SIMETH 200-200-20/5 ML (MAG-AL PLUS) 30 ML UDC PO PRN (09:40)
[2016-06-01] MEDS ORDERED: VANCOMYCIN PHARMACY PROTOCOL IV SCH ×2 (09:40)
[2016-06-01 10:00] VITALS: BP_SYST 133; BP_SYST 142; BP_DIAS 88; BP_DIAS 89; BP_DIAS 90
--- NOTE | 2016-06-01 10:03 | NUR ---
Patient arrives to room 318 via ED cart. Appears lethargic and drowsy but is alert and oriented X3. Reports severe vertigo. Denies pain or nausea. 2 assist required to transfer to weight chair and then bed. Gait unsteady. Orthostatic vital signs obtained. Telemetry applied. at bedside and helps answer health history questions. Home medication sent to pharmacy. See admission for full assessment.
--- NOTE | 2016-06-01 10:05 | NUR ---
Patient received orders to transfer to med-surg floor. Report given to Milly Desai RN. Patient was transfered by ER cart with S/O at side. Patient tolerated transfered okay. Patient was able to transferto weigh chair under his own power with stand by assist.
[2016-06-01] MEDS ORDERED: ZOLPIDEM 10 MG (AMBIEN) TAB PO SCH (10:42)
--- NOTE | 2016-06-01 10:48 | NUR ---
Lab here for blood cultures. RT here for ABG. 2L of 02 intact. Patient resting with eyes closed in bed. Respirations even and non-labored. Telemetry reflecting NSR. Will continue to monitor.
[2016-06-01 10:55] LABS: ABG PCO2 44 mmHg (35-45); ABG PH 7.34 (7.35-7.45); ABG PO2 74 mmHg (80-105)
[2016-06-01 10:56] LABS: ABG OXYGEN SATURATION 94 % (95-98)
--- NOTE | 2016-06-01 11:00 | NUR ---
Port-a-cath in right side of chest accessed at this time using sterile technique. Patient tolerates well. Blood return noted and blood cultures pulled from line. IVF infusing without difficulty.
[2016-06-01] MEDS ORDERED: NITROGLYCERIN SUBLINGUAL 0.4 MG (NITROQUICK) TABLET SL PRN (11:15)
[2016-06-01] MEDS ORDERED: HYDROmorphone 1 MG/ML (DILAUDID) SYRINGE IV PRN (11:15)
[2016-06-01] MEDS: VANCOMYCIN 1750 MG in NS IV 475 ML IV SCH ×2 (11:27→21:18)
--- NOTE | 2016-06-01 11:28 | NUR ---
Med Rec completed via list from Dr Mercdao office and bag of home meds. Will try to connect with to bring home.
--- NOTE | 2016-06-01 11:37 | NUR ---
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
[2016-06-01 11:44] LABS: MAGNESIUM* 1.5 mg/dL (1.6-2.3)
[2016-06-01 12:13] VITALS: BP 132/85
[2016-06-01] MEDS: CEFEPIME 2,000 MG in SODIUM CHLORIDE 100 ML IV SCH ×2 (13:59→23:14)
--- NOTE | 2016-06-01 14:08 | NUR ---
MULTIDISCIPLINARY MTG/DR. VIDAL: Pt. admitted with weakness, nausea and vomiting and dizziness. Imaging showed increase of the right pleural effusion and right-sided pulmonary infiltrates. Started broad spectrum IV antibiotics. Cultures pending. Pt. troponin was elevated but is trending down. Ordered CT of his head due to Pt. appearing altered. It was negative for bleeding. No discharge needs identified at this time.
[2016-06-01 15:07] VITALS: BP 126/85
--- NOTE | 2016-06-01 17:43 | NUR ---
Patient unable to urinate. Attempts to sit at edge of bed and various other positions. Remains extremely dizzy and weak. Bladder scan performed and found to have [address] Kam notified and orders to straight cath. Straight cath performed using sterile technique by this nurse with 675 ml orange urine drained. Patient tolerates well.
--- NOTE | 2016-06-01 18:25 | NUR ---
Patient resting in bed with eyes shut. Telemetry reflecting NSR. Denies pain or distress. Respirations even and non-labored on 2L of 02 intact per nc. Call light in reach.
--- NOTE | 2016-06-01 20:00 | NUR ---
Resting in bed. Is quiet and cooperative. Denies need for any pain medication. Dressing intact to old chest tube site right side. Telemetry on shows NSR. Oxygen remains on at 2 liters per NC. Denies urge to void yet. Call light within reach.
[2016-06-01 20:53] VITALS: BP 132/81
[2016-06-01 20:56] VITALS: BP_SYST 132; BP_SYST 152; BP_SYST 175; BP_DIAS 109; BP_DIAS 119; BP_DIAS 81
[2016-06-01] MEDS: VANCOMYCIN COMPOUNDED BY PHARMACY IV SCH (21:18)
--- NOTE | 2016-06-01 22:00 | NUR ---
Patient is unable to void. Bladder scan 252cc. Refuses catheter, feels like he will be able to void later. Denies need for pain medication. No respiratory distress. Has occasional non-productive cough. IV infused and port placed to HL. Needs assist of two to stand remains dizzy when standing. No emesis when standing for orthos. No nausea. Call light within reach.
[2016-06-02 00:11] VITALS: BP 156/93
[2016-06-02] MEDS ORDERED: SODIUM CHLORIDE FLUSH 3 ML SYR IV PRN (03:30)
--- NOTE | 2016-06-02 05:00 | NUR ---
Patient unable to void. Bladder scan showed 712cc. Catheterized with 16 Fr Blank cath using sterile technique. Patient tolerated well. UA sent to LAb. Patient repositioned in bed. Denies any need for pain medication. Watching TV. Call light within reach. Quiet, yet pleasant.
[2016-06-02] MEDS: CEFEPIME 2,000 MG in SODIUM CHLORIDE 100 ML IV SCH ×2 (05:13→14:53)
[2016-06-02 05:57] VITALS: BP 146/97
[2016-06-02 06:11] LABS: BASOPHILS % (AUTO) 0 % (0-2); EOSINOPHILS # (AUTO) 0.1 10^3uL; EOSINOPHILS % (AUTO) 1 % (0-4); LYMPHOCYTES # (AUTO) 0.4 X10^3; MEAN CORPUSCULAR HGB CONC 32.9 g/dL (31.0-37.0); MEAN PLATELET VOLUME 8.7 FL (6.0-9.5); MONOCYTES # (AUTO) 0.9 X10^3; MONOCYTES % (AUTO) 14 % (3-11); NEUTROPHILS # (AUTO) 4.9 X10^3; NEUTROPHILS % (AUTO) 78 % (51-67); PLATELET COUNT 176 10^3uL (150-450); WHITE BLOOD COUNT 6.29 10^3uL (4.0-11.0)
[2016-06-02 06:26] LABS: MEAN CORPUSCULAR HEMOGLOBIN 32.3 PG (26.0-34.0); MEAN CORPUSCULAR VOLUME 98 FL (80-100)
[2016-06-02 06:38] LABS: BILIRUBIN,URINE Negative (Negative); CLARITY,URINE Clear; GLUCOSE, URINE (UA) Negative (Negative); LEUKOCYTE ESTERASE ,URINE Negative (Negative); UROBILINOGEN,URINE 0.2 mg/dL (0.2-1.0)
[2016-06-02 06:45] LABS: ALBUMIN 2.8 g/dL (3.4-5.0); ANION GAP 10.1 MEQ/L (3-15); PHOSPHORUS 4.1 mg/dL (2.4-4.9)
[2016-06-02 07:03] LABS: COLOR,URINE Dark Yellow
[2016-06-02 07:04] LABS: RBC,URINE None Seen /HPF; URINE CENTRIFUGED VOLUME 12 mL
[2016-06-02 07:35] VITALS: BP 137/93
[2016-06-02] MEDS ORDERED: SODIUM CHLORIDE 100 ML ONE (08:53)
[2016-06-02] MEDS: SODIUM CHLORIDE FLUSH 10 ML SYR IV PRN ×2 (08:55→14:53)
[2016-06-02] MEDS: VANCOMYCIN 1750 MG in NS IV 475 ML IV SCH (08:55)
[2016-06-02] MEDS: VANCOMYCIN COMPOUNDED BY PHARMACY IV SCH (08:57)
[2016-06-02] MEDS ORDERED: RIVAROXABAN 10 MG (XARELTO) TABLET PO SCH (09:00)
[2016-06-02] MEDS ORDERED: SODIUM CHLORIDE 100 ML IV PRN (09:45)
[2016-06-02] MEDS ORDERED: MUPIROCIN 2% OINT 22 GM (BACTROBAN) TUBE TOP SCH (10:45)
[2016-06-02] MEDS ORDERED: MECLIZINE 25 MG (ANTIVERT) TABLET PO PRN (10:45)
--- NOTE | 2016-06-02 10:53 | NUR ---
NUTRITION ASSESSMENT Level 1 Patient: Ranjit Pocne Age/Sex: 56/M Date Screened: 06-02-16 Weight: 171.6#/78 kg Height: 75 inches Primary Diagnosis: vertigo, altered mental status Diet Order: regular Relevant labs: glucose 92 Food allergies: N Nutrition Assessment Criteria Age over 80: N Body Mass Index (BMI) under 19: N Admission Screening Indicates Risk? 6 points Moderate/High Risk Diagnosis: N TPN or PPN: N NPO or clear liquid diet: N Serum Glucose <70 or >180: N Hgb A1c >6.7: N/A Total: 6 points Risk Screen: __ Patient at low nutritional risk based on available data; reevaluate in 5-7 days __ Patient at moderate nutritional risk based on available data; reevaluate in 3-5 days _X_ Patient at high nutritional risk; complete Nutrition Assessment within 48 hours of admission.
[2016-06-02 11:57] VITALS: BP_SYST 136; BP_SYST 140; BP_DIAS 78; BP_DIAS 80; BP_DIAS 86
--- NOTE | 2016-06-02 13:30 | NUR ---
To MRI with radiology staff.
--- NOTE | 2016-06-02 14:30 | NUR ---
REsp. rate= 20.
[2016-06-02 15:55] VITALS: BP 142/82
--- NOTE | 2016-06-02 16:00 | NUR ---
Resp. rate= 26. Patient has a moist cough and difficulty breathing deeply.
--- NOTE | 2016-06-02 18:45 | NUR ---
Called report to Samir Ramirez RN at Neuro ICU at [place].
--- NOTE | 2016-06-02 19:05 | NUR ---
Patient dismissed per EMS to [facility].
== END 2016-06-02 19:05 | disposition short-term general hospital (02) | DRG 64 ==
LOC: EDUNIT# 07:01 → ED 07:03 → OBSVTOIN 09:22 → MED/SURG 09:22 → UNDOADMOB 09:22
PROVIDERS: ADMIT Internal Medicine; ATTEND Internal Medicine
DX: I63.443 Cerebral infarction due to embolism of bilateral cerebellar arteries (principal); J18.9 Pneumonia, unspecified organism; C34.91 Malignant neoplasm of unspecified part of right bronchus or lung; L02.213 Cutaneous abscess of chest wall; J90 Pleural effusion, not elsewhere classified; R79.89 Other specified abnormal findings of blood chemistry; G89.29 Other chronic pain; R11.2 Nausea with vomiting, unspecified; R48.2 Apraxia; Z79.02 Long term (current) use of antithrombotics/antiplatelets; Z86.711 Personal history of pulmonary embolism; Z86.14 Personal history of Methicillin resistant Staphylococcus aureus infection
CPT/HCPCS: 36415; 36600; 70450; 70544; 70553; 71020; 80053; 80069; 81003; 81015; 82803; 83735; 84484; 85025; 85652; 86140; 87040; 87070; 87147; 87186; 93005; 93010; 94640; 96360; 99284; 99285

== ENCOUNTER → 2016-06-01 | Outpatient (CLI) | payer MEDICAID | LOC: EMS 06:45 | PROVIDERS: ATTEND Emergency Medicine | DX: R42 Dizziness and giddiness (principal) ==

== ENCOUNTER → 2016-06-02 | Outpatient (CLI) | payer MEDICAID | LOC: EMS 19:00 | PROVIDERS: ATTEND Internal Medicine | DX: I63.8 Other cerebral infarction (principal); J18.9 Pneumonia, unspecified organism; C34.90 Malignant neoplasm of unspecified part of unspecified bronchus or lung ==

== ENCOUNTER 2016-06-13 08:05 | Outpatient (RCR) | payer MEDICAID ==
[~2016-06-13] VITALS: Ht 190.5 cm; Wt 84.4 kg
[~2016-06-13 08:05] MED LIST changes: -ACETAMINOPHEN 325 MG TAB (TYLENOL) PO SCH; +GUAI118L16 PO; +GUAI1TBM7 PO; +LINE600T PO; -NS 250 ML (IVPB) BAG IV SCH; +RIVA20TA PO; -SODIUM CHLORIDE FLUSH 3 ML SYR IV PRN; +ZOLP10TA PO; -diphenhydrAMINE 25 MG (BENADRYL) TABLET PO SCH
[2016-06-13] MEDS ORDERED: NS FLUSH 3 ML PRN IV (08:10)
[2016-06-13] MEDS: NS FLUSH 10 ML PRN IV ×3 (08:12→20:06)
[2016-06-13] MEDS: VANCOMYCIN 1,000 MG in SODIUM CHLORIDE 250 ML IV SCH ×2 (08:12→20:06)
[2016-06-14] MEDS: NS FLUSH 10 ML PRN IV ×3 (08:14→19:56)
[2016-06-14] MEDS: VANCOMYCIN 1,000 MG in SODIUM CHLORIDE 250 ML IV SCH ×2 (08:15→19:58)
[2016-06-15] MEDS: VANCOMYCIN 1,000 MG in SODIUM CHLORIDE 250 ML IV SCH ×2 (08:10→20:34)
[2016-06-15] MEDS: NS FLUSH 10 ML PRN IV ×3 (08:10→22:09)
[2016-06-16] MEDS: VANCOMYCIN 1,000 MG in SODIUM CHLORIDE 250 ML IV SCH ×2 (08:19→19:25)
[2016-06-16] MEDS: NS FLUSH 10 ML PRN IV ×2 (08:20→19:26)
[2016-06-17] MEDS: VANCOMYCIN 1,000 MG in SODIUM CHLORIDE 250 ML IV SCH (06:17)
[2016-06-17] MEDS: NS FLUSH 10 ML PRN IV (06:17)
[2016-06-17 06:20] VITALS: BP 127/84
[2016-06-26] MEDS ORDERED: ATOR80TA PO (08:27)
[2016-06-26] MEDS ORDERED: MAGN400T29 PO (08:27)
[2016-06-26] MEDS ORDERED: LINE600T6 PO (08:28)
[2016-06-26] MEDS ORDERED: IPRA3AMP11 INH (08:28)
[2016-06-26] MEDS ORDERED: ASPI-586 PO (08:28)
== END 2016-08-19 18:34 | disposition home or self-care (01) ==
LOC: EUOP 19:54
PROVIDERS: ATTEND Internal Medicine Infectious Disease
DX: T85.79XA Infection and inflammatory reaction due to other internal prosthetic devices, implants and grafts, initial encounter (principal); B95.62 Methicillin resistant Staphylococcus aureus infection as the cause of diseases classified elsewhere; Z79.2 Long term (current) use of antibiotics; Z87.891 Personal history of nicotine dependence
CPT/HCPCS: 96365; 96366; A4221; J1642; J3370; J7050; 36000

== ENCOUNTER → 2016-06-19 | Outpatient (CLI) | payer MEDICAID ==
--- NOTE | 2016-06-19 13:17 | Diagnostic Imaging Report ---
INDICATION: Question aspiration. History of lung cancer. EXAMINATION: Barium swallow/esophagram 06/19/2016. FINDINGS: The frontal radiograph of the chest before examination demonstrates diffuse changes throughout the right hemithorax consistent with prior surgery and lung carcinoma. There is an effusion and infiltrate at the right lung base with diffuse airspace opacities throughout the right mid and upper lung also noted. These findings are similar to previous examination. A right chest port is stable. Heart is unchanged. The left lung demonstrates mild chronic interstitial changes with a small left pleural effusion. Patient was placed in an upright position, and lateral imaging was performed of the hypopharynx and upper esophagus. A single swallow of thick barium was provided. Patient immediately aspirated. This was silent. Examination was therefore terminated IMPRESSION: Silent aspiration noted. This was called to Dr. Hernandez 's is nurse by Dr. Fitzgerald 06/19/2016, at 12:20 PM. Modified barium swallow is recommended with speech therapy evaluation. Dictated by: Dictated on workstation # [id number]
== END ==
LOC: RAD 10:55
PROVIDERS: ATTEND Internal Medicine Hematology & Oncology
DX: J69.0 Pneumonitis due to inhalation of food and vomit (principal); C34.01 Malignant neoplasm of right main bronchus
CPT/HCPCS: 74220

== ENCOUNTER 2016-06-22 09:40 | Outpatient (RCR) | payer MEDICAID, OTHER ==
[2016-06-22 08:01] LABS: MEAN CORPUSCULAR VOLUME 97 FL (80-100); MEAN PLATELET VOLUME 8.2 FL (6.0-9.5); PLATELET COUNT 204 10^3uL (150-450); WHITE BLOOD COUNT 8.02 10^3uL (4.0-11.0)
[2016-06-22 08:07] LABS: MEAN CORPUSCULAR HEMOGLOBIN 31.8 PG (26.0-34.0)
[2016-06-22 08:20] LABS: BAND NEUTROPHILS % 0 % (0-6); EOSINOPHILS % 3 % (0-4); LYMPHOCYTES # 0.5 #; MONOCYTES # 0.2 #; MONOCYTES % 3 % (3-11); RBC MORPH NORMAL (NORMAL); SEGMENTED NEUTROPHILS % 88 % (51-67); TOTAL CELLS COUNTED 100
[2016-06-22 08:29] LABS: ALBUMIN 3.2 g/dL (3.4-5.0); ANION GAP 15.1 MEQ/L (3-15); CALCULATED IONIZED CALCIUM 4.2 mg/dL (3.8-4.6); TOTAL PROTEIN 6.4 g/dL (6.4-8.5)
[2016-06-26] MEDS ORDERED: MAGN400T29 PO (08:27)
[2016-06-26] MEDS ORDERED: ATOR80TA PO (08:27)
[2016-06-26] MEDS ORDERED: LINE600T6 PO (08:28)
[2016-06-26] MEDS ORDERED: ASPI-586 PO (08:28)
[2016-06-26] MEDS ORDERED: IPRA3AMP11 INH (08:28)
[2016-06-29 09:39] LABS: MEAN CORPUSCULAR HGB CONC 32.9 g/dL (31.0-37.0); MEAN CORPUSCULAR VOLUME 96 FL (80-100); MEAN PLATELET VOLUME 7.9 FL (6.0-9.5); PLATELET COUNT 98 10^3uL (150-450); WHITE BLOOD COUNT 6.71 10^3uL (4.0-11.0)
[2016-06-29 09:40] LABS: MEAN CORPUSCULAR HEMOGLOBIN 31.6 PG (26.0-34.0)
[2016-06-29 09:55] LABS: BAND NEUTROPHILS % 1 % (0-6); EOSINOPHILS % 1 % (0-4); LYMPHOCYTES # 0.9 #; MONOCYTES # 0.2 #; MONOCYTES % 3 % (3-11); SEGMENTED NEUTROPHILS % 81 % (51-67); TOTAL CELLS COUNTED 100
[2016-06-29 09:56] LABS: RBC MORPH NORMAL (NORMAL)
== END 2016-08-19 19:25 | disposition home or self-care (01) ==
LOC: LAB 09:40
PROVIDERS: ATTEND Internal Medicine Hematology & Oncology
DX: C34.01 Malignant neoplasm of right main bronchus (principal); Z79.2 Long term (current) use of antibiotics
CPT/HCPCS: 36415; 80053; 85007; 85027

== ENCOUNTER 2016-06-22 14:39 | Outpatient (RCR) | payer MEDICAID, OTHER ==
--- NOTE | 2016-06-26 11:45 | PT/OT/ST INITIAL EVALUATION ---
Department of Health and Human Services Form Approved Health Care Financing Administration OMB No. [id number] PLAN OF CARE/ASSESSMENT FOR OUTPATIENT REHABILITATION (Complete for Initial Claims Only) 1. PATIENT'S NAME Ranjit Ponce 2. ACC # [id number] 3. HICN NA 4. PROVIDER NO. NA 5. TYPE: SPT 6. PRIOR HOSPITALIZATION NA 7. PRIMARY DX Lung cancer 8. SECONDARY DX Dysphagia 9. ONSET DATE Approximately 2 weeks ago 10. REFERRAL DATE 06/19/2016 11. SOC. DATE 06/22/2016 12. TIME OF EVAL 14:39 12. REFERRING PHYSICIAN Damien Hernandez MD 13. CHARGES/UNITS NA 14. G CODES NA 15. PRIOR LEVEL OF FUNCTION; PERTINENT HISTORY (Prior therapy results, reason for referral.) S: Prior to therapy, the patient consented to today's evaluation and treatment. The patient is a 56-year-old male referred to speech therapy by Dr. Hernandez to address dysphagia. This is a modified barium swallow study evaluation only. Personal health rating: The patient rates his overall and general health as poor. Mechanism of injury: There is no mechanism of injury. Primary Complaint: The primary complaint is he has trouble swallowing liquids. He can hardly drink any water. He does not really complain of any difficulty with solids, just mainly liquids. Prior level of function: Prior to this he was able to eat and drink anything. Therapy History: He has never received therapy for this. Social history: He lives at home by himself. Aggravating factors: He has no aggravating factors. Diagnostic testing: He has no diagnostic testing. Past medical history: The patient was diagnosed with lung cancer in November 2015. He has had MRSA twice. He had a small stroke approximately 2 weeks ago and was at [place] for this. Past surgical history: The patient reports no surgeries Current medications: No medications that should affect therapy. 16. INITIAL ASSESSMENT/SAFETY PRECAUTIONS/MEDICAL COMPLICATIONS (Level of function at start of care. Be specific, use objective measures, list problems.) O: APPEARANCE AND OBSERVATION: The patient was initially given a bedside swallow. He had dentures on both his upper and lower teeth, but demonstrates no labial or lingual weakness. Initially he was given pudding. He demonstrated efficient oral motility and was able to clear his oral cavity. He had bolus control of the posterior tongue and a pharyngeal swallow trigger without delay. He needed multiple swallows to clear his vallecula and piriforms and he did demonstrate flash penetration with the pudding-thick liquids. He did not demonstrate aspiration with this. He was then given honey-thick liquids and demonstrated efficient oral motility. He was able to clear his oral cavity and had bolus control of the posterior tongue and pharyngeal swallow trigger without delay. On this he also needed multiple swallows to clear his vallecula and his piriform sinuses. He did demonstrate aspiration with the honey-thick liquids in which he had a reflexive cough, but he did have deep aspiration. No nectar or thin liquids were given secondary to aspiration on honey-thick liquids. He was then given ground meat and demonstrated efficient oral motility. He was able to clear his oral cavity and had bolus control of the posterior tongue and a pharyngeal swallow trigger without delay. He did have vallecula residue that needed multiple swallows and piriform sinus residue that needed multiple swallows. He did not aspirate on this, but had a lot of difficulty transferring down his pharynx and had a lot of coughing on the ground meat and crackers. 17. INITIAL POC: (Specify procedures, modalities, short and residential goals) A: The patient presents with a moderate to severe pharyngeal dysphagia. Recommend n.p.o. secondary to penetration on pudding-thick liquids and aspiration on honey-thick liquids, as well as difficulty with solid consistencies. Recommend n.p.o. as well as speech services for strengthening of pharyngeal muscles. The patient demonstrated understanding of need for outpatient services. PROGNOSIS: Due to a personal health rating of poor, the patient would have a fair prognosis for therapy. INFORMED CONSENT: The diagnosis, prognosis, treatment plan, risks and expected outcomes were discussed with the patient and the patient did agree to today's established plan of care of evaluation only. P: Plan to discharge the patient at this time secondary to evaluation only. 18. FREQUENCY One time with evaluation only 19. DURATION NA 20. FUNCTIONAL LEVEL (End of claim period) 21. PHYSICIAN SIGNATURE ? ON FILE OR ENTER HERE: 22. DATE: I certify the need for these services furnished under this plan of care and if for partial hospitalization. 23. CERTIFICATION FROM THROUGH FORM FA-700
== END 2016-06-22 18:00 | disposition home or self-care (01) ==
LOC: ST 14:39
PROVIDERS: ATTEND Internal Medicine Hematology & Oncology
DX: R13.19 Other dysphagia (principal); C34.01 Malignant neoplasm of right main bronchus

== ENCOUNTER → 2016-06-22 | Outpatient (CLI) | payer MEDICAID ==
--- NOTE | 2016-06-22 09:38 | Diagnostic Imaging Report ---
PROCEDURE: CT chest pelvis with and abdomen with and without contrast. TECHNIQUE: Multiple contiguous axial images were obtained through the chest, abdomen and pelvis after uneventful bolus administration of intravenous contrast. Precontrast acquisitions were acquired through the abdomen. INDICATION: Lung cancer. COMPARISON: 04/03/2016. Chest: A small/ medium-sized left pleural effusion has developed in the interval. Subpulmonic right pleural effusion is similar to the prior exam. Right lower lobe atelectasis is present extending from the right hilum to inferior. The amount of atelectasis in the right lower lobe has increased since the prior study. An enlarged lymph node is present anterior to the proximal right mainstem bronchus showing no change from the prior study. A slightly enlarged upper right paratracheal lymph node is present showing no significant change. Calcified subcarinal lymph nodes are present that are unchanged. A new lymph node is visible just to the left of the distal main pulmonary artery measuring about 1.9 x 1.0 cm. A new 1.4-cm left hilar lymph node is present. There is no pericardial effusion. We do note likely filling defects in a segmental pulmonary artery branch to the lingula and in the proximal descending left pulmonary artery. These are difficult to assess because of the degree of opacification of the pulmonary arterial system. Severe centrilobular emphysema is present. New abnormal interstitial opacity is present in the aerated right lung. An area of subsegmental atelectasis is now present in the left costophrenic angle. The Port-A-Cath tip is in the distal SVC. There is no osteolytic or osteoblastic lesion. The previously identified right pleural catheter has been removed. IMPRESSION: 1. Interval development of small/ medium-sized left-sided pleural effusion. 2. Increased atelectasis of the right lower lobe. Similar right-sided pleural effusion. 3. Stable right paratracheal adenopathy. 4. New enlarged lymph node in the left hilum and adjacent to the left main pulmonary artery. 5. Probable filling defect in the left pulmonary artery segmental branches, consistent with pulmonary embolism. Pulmonary embolism was noted on the left on the prior examination also. 6. Increasing interstitial disease of the right lung superimposed on emphysema. Interstitial disease could be interstitial edema or lymphangitic spread of metastasis. Abdomen/ pelvis: No solid hepatic mass is seen. In the left lobe of the liver, a cyst is present. Tiny cyst is seen in the inferior right lobe. The bile ducts are not dilated. The spleen is negative. Right adrenal is negative. A left adrenal mass is present. This previously measured 4.0 x 2.8 cm, currently measuring unchanged. There is no adenopathy in the gastrohepatic ligament. The gastrosplenic and periportal lymph nodes are negative. Retroperitoneal, pelvic, and inguinal lymph nodes are negative. Moderate free fluid is present in the pelvis, increased in amount since the prior exam. The kidneys show no significant change. The pancreas is negative. There is no bowel wall thickening identified. No osteolytic or osteoblastic lesion is identified. IMPRESSION: 1. Stable left adrenal mass. 2. Increased free fluid in the pelvis since the prior study. Otherwise, no change. Dictated by: Dictated on workstation # [id number]
--- NOTE | 2016-06-22 21:10 | Diagnostic Imaging Report ---
INDICATION: Lung cancer. Dysphagia. Pre [employer] Lead Teacher film of the chest shows a Port-A-Cath to be present with the tip in the superior vena cava. Volume loss of the right hemithorax is present with right lower lobe atelectasis and/or consolidation. Interstitial opacity is present in the right lung which is similar to 06/02/2016. The patient was in a lateral sitting position and the speech therapist was in attendance. Syrup consistency was given and there was flash penetration and there appeared to be some aspiration with syrup consistency liquids. Pudding consistency and barium laced meat and crackers were also given. These were handled without aspiration which cleared with repeat swallowing. IMPRESSION: The patient has aspiration with syrup consistency liquids. Barium laced meat and crackers were handled without aspiration. Dictated by: Dictated on workstation # [id number]
== END ==
LOC: RAD 07:39
PROVIDERS: ATTEND Internal Medicine Hematology & Oncology
DX: R13.19 Other dysphagia (principal); C34.01 Malignant neoplasm of right main bronchus
CPT/HCPCS: 71260; 74178; 74230; Q9967

== ENCOUNTER 2016-06-26 08:09 | Emergency (ER) | payer MEDICAID ==
[~2016-06-26] VITALS: Ht 190.5 cm; Wt 79.5 kg
[~2016-06-26 08:09] MED LIST changes: -ASPI-586 PO; -ATOR80TA PO; -IPRA3AMP11 INH; -LINE600T6 PO; -MAGN400T29 PO
[2016-06-26] MEDS ORDERED: MAGN400T29 PO (08:27)
[2016-06-26] MEDS ORDERED: ATOR80TA PO (08:27)
[2016-06-26] MEDS ORDERED: ASPI-586 PO (08:28)
[2016-06-26] MEDS ORDERED: IPRA3AMP11 INH (08:28)
[2016-06-26] MEDS ORDERED: LINE600T6 PO (08:28)
[2016-06-26 08:35] LABS: BASOPHILS % (AUTO) 0 % (0-2); EOSINOPHILS # (AUTO) 0.3 10^3uL; EOSINOPHILS % (AUTO) 3 % (0-4); LYMPHOCYTES # (AUTO) 0.6 X10^3; MEAN CORPUSCULAR HEMOGLOBIN 31.3 PG (26.0-34.0); MEAN CORPUSCULAR HGB CONC 32.5 g/dL (31.0-37.0); MEAN CORPUSCULAR VOLUME 96 FL (80-100); MEAN PLATELET VOLUME 8.4 FL (6.0-9.5); MONOCYTES # (AUTO) 0.7 X10^3; MONOCYTES % (AUTO) 9 % (3-11); NEUTROPHILS # (AUTO) 6.6 X10^3; NEUTROPHILS % (AUTO) 80 % (51-67); PLATELET COUNT 125 10^3uL (150-450); WHITE BLOOD COUNT 8.23 10^3uL (4.0-11.0)
--- NOTE | 2016-06-26 10:20 | NUR ---
The patient is discharged with a nose clamp to stop bleeding. Instructions are provided and the patient indicates an undertanding.
[2016-06-26 10:33] VITALS: BP 130/84
== END 2016-06-26 10:25 | disposition home or self-care (01) ==
LOC: EDUNIT# 08:09 → ED 08:10
DX: R04.0 Epistaxis (principal); Z79.01 Long term (current) use of anticoagulants
CPT/HCPCS: 36415; 85025; 99282; 99283

== ENCOUNTER → 2016-06-26 | Outpatient (CLI) | payer MEDICAID ==
[~2016-06-26] MED LIST changes: +ASPI-586 PO; +ATOR80TA PO; +IPRA3AMP11 INH; +LINE600T6 PO; +MAGN400T29 PO
== END ==
LOC: EMS 07:50
PROVIDERS: ATTEND Emergency Medicine
DX: R04.0 Epistaxis (principal)

== ENCOUNTER → 2016-06-28 | Outpatient (CLI) | payer MEDICAID ==
[~2016-06-28] VITALS: Ht 190.5 cm; Wt 79.5 kg
[~2016-06-28] MED LIST changes: +ASPI-586 PO; +ATOR80TA PO; +IPRA3AMP11 INH; +LINE600T6 PO; +MAGN400T29 PO; +NS FLUSH 3 ML PRN IV
--- NOTE | 2016-06-28 13:15 | NUR ---
Patient arrives to ICU room 341 from ER via wheelchair. Patient is here to receive a bolus of IV normal saline. Order from Dr Campos received. Aakash has a PICC line in his right upper chest that was cleaned and accessed with a 22 gauge Ngo needle. 1000 ml of Normal Saline was ordered to run over 2 hours at 500 ml/hr.
[2016-06-28] MEDS: NS FLUSH 10 ML PRN IV ×2 (13:25→15:41)
[2016-06-28 14:00] VITALS: BP 118/84
[2016-06-28 14:01] VITALS: BP 122/80
[2016-06-28 14:30] VITALS: BP 119/81
[2016-06-28 15:00] VITALS: BP 121/84
[2016-06-28 15:30] VITALS: BP 117/81
--- NOTE | 2016-06-28 15:35 | NUR ---
IV fluid infusion completed. Patient tolerated infusion well.
== END ==
LOC: ED 12:49 → EDSTATUS 12:59 → EUOP 12:59 → ICU 13:00 → EUOP 15:40
PROVIDERS: ATTEND Family Medicine
DX: E86.0 Dehydration (principal)
CPT/HCPCS: 96360; 96361; J1642; J7030

== ENCOUNTER 2016-07-06 14:30 | Outpatient (RCR) | payer MEDICAID, OTHER ==
--- NOTE | 2016-07-01 14:52 | PT/OT/ST INITIAL EVALUATION ---
Department of Health and Human Services Form Approved Health Care Financing Administration OMB No. [id number] PLAN OF CARE/ASSESSMENT FOR OUTPATIENT REHABILITATION (Complete for Initial Claims Only) 1. PATIENT'S NAME Ranjit Ponce 2. ACC # [id number] 3. HICN NA 4. PROVIDER NO. NA 5. TYPE: SPT 6. PRIOR HOSPITALIZATION NA 7. PRIMARY DX Lung cancer 8. SECONDARY DX Aspiration pneumonia and dysphagia 9. ONSET DATE Approximately 1 month ago 10. REFERRAL DATE June 25, 2016 11. SOC. DATE June 29, 2016 12. TIME OF EVAL 12. REFERRING PHYSICIAN Dr. Damien Hernandez 13. CHARGES/UNITS 14. G CODES 15. PRIOR LEVEL OF FUNCTION; PERTINENT HISTORY (Prior therapy results, reason for referral.) S: Prior to therapy, the patient consented to today's evaluation and treatment. The patient is a 56-year-old male referred to speech therapy by Dr. Hernandez to address dysphagia. Personal health rating: The patient rates his overall and general health as poor. Mechanism of injury: There is none, however, the primary complaint is the patient is unable to drink or eat hardly anything because of aspiration. Prior to this, he began having difficulties when he had his stroke approximately 1 month ago and currently he is unable to eat or drink hardly anything. Therapy History: He states he did not receive therapy while he was at [facility] for his stroke. Social history: He lives at home with his . Aggravating factors: He has no aggravating factors. Diagnostic testing: There was a modified barium swallow study completed and this demonstrated aspiration on honey-thick liquids, penetration on pudding-thick liquids and pharyngeal residue and aspiration on solid consistencies. Past medical history: The patient was diagnosed with lung cancer in November 2015. He suffered a stroke approximately 1 month ago. He has non-small cell lung cancer in the right main bronchus. His non-small cell lung cancer is stage IV and he has a history of right pleural effusion, aspiration. He has a history of a recurrent infection related to prior PleurX catheter placement and he states he has had MRSA twice. He also has a past medical history of frequent voiding, sleep disorder, pulmonary embolism. He has also demonstrated silent aspiration in the past. Current medications: Medications were reviewed with the patient and none should affect the therapy. 16. INITIAL ASSESSMENT/SAFETY PRECAUTIONS/MEDICAL COMPLICATIONS (Level of function at start of care. Be specific, use objective measures, list problems.) O: APPEARANCE AND OBSERVATION: Upon assessment the patient was given bedside swallow. He demonstrated no labial or lingual weakness and he had proper velar and laryngeal elevation. He was not given any liquids or solids to at secondary to his modified barium swallow study demonstrating aspiration. The patient was instructed on compensatory strategies for swallowing when trying to eat or drink these at home, however, it was recommended to the patient to be n.p.o. and we did talk about tube feedings and he said that he has talked with Dr. Hernandez about this and this is not something that he is interested in doing at this point. He wants to continue trying to use compensatory strategies for swallow safety and function. It was gone over with the patient about pharyngeal exercises and these were demonstrated to the patient and he demonstrated these with knowledge of how to do them. The patient agreed to do exercises at home and therapy for swallow safety, function and strengthening to prevent aspiration. CONTRAINDICATIONS: None. 17. INITIAL POC: (Specify procedures, modalities, short and nursing home goals) A: PROGNOSIS: Due to a personal health rating of poor, the patient has a fair prognosis for therapy. INFORMED CONSENT: The diagnosis, prognosis, treatment plan, risks and expected outcomes were discussed with the patient and , and they agreed to today's established plan of care. P: Plan to treat the patient 1 time a week for 6 weeks in order to address dysphagia. Therapy to include pharyngeal strengthening and diet tolerance. 18. FREQUENCY 1 time per week 19. DURATION 6 weeks 20. FUNCTIONAL LEVEL (End of claim period) 21. PHYSICIAN SIGNATURE ? ON FILE OR ENTER HERE: 22. DATE: I certify the need for these services furnished under this plan of care and if for partial hospitalization. 23. CERTIFICATION FROM THROUGH FORM FA-700
[~2016-07-06 14:30] MED LIST changes: -NS FLUSH 3 ML PRN IV
== END 2016-07-17 12:00 | disposition home or self-care (01) ==
LOC: ST 14:30
PROVIDERS: ATTEND Internal Medicine Hematology & Oncology
DX: C34.01 Malignant neoplasm of right main bronchus (principal); J69.0 Pneumonitis due to inhalation of food and vomit

== ENCOUNTER → 2016-07-10 | Outpatient (CLI) | payer OTHER | LOC: EMS 05:24 ==